=== PATIENT | male | born 1980 | race Caucasian/White ===

== ENCOUNTER 2021-04-17 10:58 | Emergency (ER) | payer OTHER ==
[2021-04-17 12:32] LABS: Bacteria/HPF None Seen HPF (None Seen); Bilirubin Negative (Negative); Blood, Urine 1+ (Negative); Clarity Clear (Clear); Glucose, Urine (Dipstick) Normal (Negative); Ketone, Urine 40 mg/dL (Negative); Leukocyte Negative Leu/uL (Negative); Nitrite Negative (Negative); Protein, Urine (Dipstick) Negative (Neg-Trace); Specific Gravity, Urine 1.018 (1.002-1.036); Squamous Epithelial None Seen HPF (0-3); Urobilinogen Normal mg/dL (Less than 2); WBC/HPF 0-3 HPF (0-3)
[2021-04-17 12:43] LABS: #Eosinphils 0.1 thou/uL (0.0-0.7); #Lymphocytes 1.8 thou/uL (1.20-3.40); #Monocytes 0.5 thou/uL (0.11-0.59); #Neutrophils 4.4 thou/uL (1.40-6.50); %Lymphocytes 26.3 % (21.0-51.0); %Monocytes 7.2 % (0.0-10.0); %Neutrophils 65.6 % (42.0-75.0); Hemoglobin 15.4 g/dL (14.0-18.0); Mean Corpuscular Hemoglobin 29.7 pg (27.0-31.0); Mean Corpuscular Volume 87.3 fL (78.0-98.0); Mean Platelet Volume 7.4 fL (7.4-10.4); Platelet Count 168 thou/uL (130-400); White Blood Cell (WBC) Count 6.7 thou/uL (4.8-10.8)
[2021-04-17 13:02] LABS: ALT (SGPT) 19 U/L (8-55); AST (SGOT) 22 U/L (5-34); Albumin 4.8 g/dL (3.5-5.0); Alkaline Phosphatase 84 U/L (40-110); Anion Gap 12 mmol/L (10-20); BUN (Urea Nitrogen) 10 mg/dL (8.9-20.6); Bilirubin, Total 0.9 mg/dL (0.2-1.2); Calc. Creatinine Clearance 0 mL/min (70-130); Calcium 9.5 mg/dL (7.8-10.44); Carbon Dioxide 25 mmol/L (22-29); Chloride 105 mmol/L (98-107); Globulin 3.2 g/dL (2.4-3.5); Glucose 89 mg/dL (70-105); Potassium 4.5 mmol/L (3.5-5.1); Sodium 137 mmol/L (136-145)
== END 2021-04-17 15:18 | disposition home or self-care (01) ==
LOC: ERS 10:58
DX: N20.2 Calculus of kidney with calculus of ureter (principal)
CPT/HCPCS: 36415; 74176; 80053; 81003; 81015; 85025

== ENCOUNTER 2021-04-21 13:02 | Outpatient (CLI) | payer OTHER ==
[2021-04-21 14:38] LABS: Hemoglobin 14.5 g/dL (13.5-17.5); Mean Corpuscular Hemoglobin 27.9 pg (27.0-33.0); Mean Corpuscular Volume 84.4 fl (81.2-95.1); Mean Platelet Volume 9.4 fl (7.4-10.4); Platelet Count 175 10x3/uL (150-450); RBC Distribution Width 12.5 % (11.5-14.5); White Blood Cell (WBC) Count 6.4 10x3/uL (3.5-10.5)
[2021-04-21 15:03] LABS: PTT 26.2 sec (22.0-33.0); Prothrombin Time 10.9 sec (9.5-12.1)
[2021-04-21 15:05] LABS: Anion Gap 14 mmol/L (10-20); BUN (Urea Nitrogen) 9 mg/dL (8.9-20.6); Calc. Creatinine Clearance 0 mL/min (70-130); Calcium 9.9 mg/dL (7.8-10.44); Carbon Dioxide 27 mmol/L (22-29); Chloride 105 mmol/L (98-107); Glucose 85 mg/dL (70-105); Potassium 4.2 mmol/L (3.5-5.1); Sodium 142 mmol/L (136-145)
[2021-04-22 16:40] LABS: SARS-CoV-2 PCR by NAA Not Detected (NotDetected)
== END 2021-04-21 13:03 | disposition home or self-care (01) ==
LOC: LABBT 13:02
PROVIDERS: ATTEND Urology
DX: Z01.818 Encounter for other preprocedural examination (principal); Z20.822 Contact with and (suspected) exposure to COVID-19
CPT/HCPCS: 80048; 85027; 85610; 85730; 93005; 93010; U0003; U0005

== ENCOUNTER 2021-04-26 10:00 | Day surgery (SDC) | payer OTHER ==
[2021-04-25 12:08] VITALS: BMI 24.4
[2021-04-26] MEDS ORDERED: Famotidine/PF 20 mg/2ml Vial ONE (10:38)
[2021-04-26] MEDS ORDERED: Midazolam HCl 2 mg/2 ml Vial ONE (10:38)
[2021-04-26] MEDS ORDERED: Fentanyl 100 MCG/2 ML VIAL ONE ×2 (10:38→13:28)
[2021-04-26] MEDS ORDERED: Sodium Chloride 0.9% 100 ML ONE (10:55)
[2021-04-26] MEDS ORDERED: cefTRIAXone\\ROCEPHIN 2 GM VIAL ONE (10:55)
[2021-04-26] MEDS ORDERED: SUGAMMADEX SODIUM 200 MG/2 ML VIAL ONE (11:24)
[2021-04-26] MEDS ORDERED: Lidocaine 2% Jelly 5 ML TUBE ONE (11:24)
[2021-04-26] MEDS ORDERED: Iothalamate Meglumine 60% 30 ML VIAL FS ONE (11:37)
[2021-04-26] MEDS ORDERED: ePHEDrine 50 MG/ML VIAL ONE (11:49)
[2021-04-26] MEDS ORDERED: Dexamethasone 20 MG/5 ML VIAL ONE (11:49)
[2021-04-26] MEDS ORDERED: Ondansetron PF 4 MG/2 ML Vial ONE (11:49)
[2021-04-26] MEDS ORDERED: Lidocaine 1% PF 5 ML VIAL ONE (11:49)
[2021-04-26] MEDS ORDERED: PROPOFOL 200 MG/20 ML VIAL ONE (11:49)
[2021-04-26] MEDS ORDERED: Metoclopramide HCl 10 MG/2 ML VIAL ONE (11:49)
[2021-04-26] MEDS ORDERED: Meperidine HCl/PF 25 MG/ML VIAL ONE (12:55)
[2021-04-26] MEDS ORDERED: Ketorolac Tromethamine 30 MG/ML VIAL ONE (13:03)
[2021-04-26] MEDS ORDERED: Oxybutynin 5 MG TAB ONE (13:53)
[2021-04-26] MEDS ORDERED: Phenazopyridine HCl 100 MG TAB ONE (13:54)
[2021-05-02 09:38] LABS: CA Oxalate Dihydrate 90 % (.); CA Oxalate Monohydrate 5 % (.); Color Tan (.); Stone Weight 30 mg (.)
== END 2021-04-26 16:00 | disposition home or self-care (01) ==
LOC: SDC 10:00
PROVIDERS: ATTEND Urology
DX: N20.2 Calculus of kidney with calculus of ureter (principal); Z86.16 Personal history of COVID-19; Z79.899 Other long term (current) drug therapy; Z88.1 Allergy status to other antibiotic agents; Z88.5 Allergy status to narcotic agent
CPT/HCPCS: 74018; 74420; 82365; 88300; C2617; J0696; J1100; J1885; J2175; J2250; J2405; J2704; J2765; J3010; J3490; S0028

== ENCOUNTER 2021-07-10 12:41 | Outpatient (CLI) | payer OTHER | END 2021-07-10 12:42 | disposition home or self-care (01) | LOC: BICULT 12:41 | PROVIDERS: ATTEND Urology | DX: N20.0 Calculus of kidney (principal); R35.0 Frequency of micturition; N28.1 Cyst of kidney, acquired | CPT/HCPCS: 74018; 76770 ==

== ENCOUNTER 2022-02-19 09:17 | Outpatient (CLI) | payer OTHER | END 2022-02-19 09:18 | disposition home or self-care (01) | LOC: BICRAD 09:17 | PROVIDERS: ATTEND Urology | DX: N20.0 Calculus of kidney (principal) | CPT/HCPCS: 74018 ==